=== PATIENT | male | born 1945 | race Caucasian/White ===

== ENCOUNTER 2019-04-01 18:17 | Inpatient (IN) | payer MEDICARE ==
[~2019-04-01] VITALS: Ht 175.3 cm; Wt 66.5 kg
[~2019-04-01 18:17] MED LIST: ASPI81CH; ASPI81CH PO; ATOR20 PO; BISA10S PR; CEPACOL SORE T1 EACH MM; DICL.1SO OD; DOCU100 PO; Doxycycline Hy100 MG PO; FENT25TP TOP; FERR325 PO; FOLI1 PO; GABA600 PO; IBUP600 PO; LISI20 PO; LORA.5 PO; MESA250ER PO; METCAR750 PO; METO25 PO; METO50ER PO; Milk Of Ma400 MG/5 M PO; Multi-Day Vita1 EACH PO; NITR.4SL SL; NITR.6SL SL; OFLO.3OPSO; OMEP20ER PO; ONDA8 PO; OXYC10ER PO; OXYC1TAB11 PO; Omeprazole20 M1 PO; POLYOX WSR-3011 GM PO; PRED1SU OD; THIA100 PO; TRAM50 PO; TRAZ50 PO; Vitamin C100 M1 PO; Zofran Odt4 MG SL
[2019-04-01 18:34] LABS: BASOPHILS ABSOLUTE AUTO 0.03 K/mm3 (0.00-0.23); BASOPHILS PERCENT AUTO 0 % (0-2); EOSINOPHILS ABSOLUTE AUTO 0.07 K/mm3 (0.00-0.68); EOSINOPHILS PERCENT AUTO 1 % (0-6); Hematocrit 31.4 % (37.0-53.0); Hemoglobin 10.2 g/dL (13.5-17.5); IMMATURE GRAN ABSOLUTE AUTO 0.03 K/mm3 (0.00-0.10); IMMATURE GRAN PERCENT AUTO 0 % (0-1); LYMPHOCYTES ABSOLUTE AUTO 1.34 K/mm3 (0.84-5.20); LYMPHOCYTES PERCENT AUTO 16 % (21-46); MONOCYTES PERCENT AUTO 5 % (4-13); Mean Corpuscular HGB 31.1 pg (26.0-34.0); Mean Corpuscular HGB Conc 32.5 g/dL (31.5-36.5); Mean Corpuscular Volume 96 fL (80-100); Mean Platelet Volume 9.3 fL (9.1-12.4); NEUTROPHILS ABSOLUTE AUTO 6.38 K/mm3 (1.96-9.15); NEUTROPHILS PERCENT AUTO 77 % (41-73); Platelet Count 259 K/mm3 (150-400); RDW Coefficient Variation 13.8 % (11.7-14.2); RDW Standard Deviation 48.4 fL (35.1-46.3); Red Blood Cell Count 3.28 M/mm3 (4.30-5.90); White Blood Cell Count 8.25 K/mm3 (4.00-11.30)
[2019-04-01 19:05] LABS: Alanine Aminotransfer (ALT/SGP 14 U/L (12-78); Albumin/Globulin Ratio 0.7 (0.8-1.8); Alk Phos 66 U/L (50-136); Anion Gap 8 mmol/L (6-16); Aspartate Aminotrans (AST/SGOT 14 U/L (12-37); Bilirubin, Total 0.6 mg/dL (0.1-1.0); Blood Urea Nitrogen 13 mg/dL (8-24); Bun/Creatinine Ratio 16.1 (12.0-20.0); CO2, Blood 22 mmol/L (21-32); Chloride, Blood 103 mmol/L (98-108); Creatinine, Blood 0.81 mg/dL (0.60-1.20); Globulin, Blood 4.4 g/dL (2.2-4.0); Glomerular Filtration Rate >60 (60-); Glucose, Blood 129 mg/dL (70-99); Potassium, Blood 3.8 mmol/L (3.5-5.5); Sodium, Blood 133 mmol/L (136-145); Total Protein, Blood 7.4 g/dL (6.4-8.2); Troponin I 0.042 ng/mL (0.000-0.040)
[2019-04-01] MEDS ORDERED: LISI20 PO (20:12)
[2019-04-01] MEDS ORDERED: GABA300 PO (20:12)
[2019-04-01 20:43] LABS: Magnesium, Blood 2.2 mg/dL (1.6-2.4)
[2019-04-01 20:44] LABS: Thyroid Stimulating Hormone 0.793 uIU/mL (0.360-4.800)
[2019-04-01 21:01] LABS: CHOL/HDL RATIO 3.3; Cholesterol 116 mg/dL (50-200); HDL Cholesterol 35 mg/dL (>39); LDL/HDL RATIO 1.9; Low Density Lipoprotein Chol 66 mg/dL (0-110); Triglycerides 77 mg/dL (30-160); Very Low Density Lipoprot Chol 15 mg/dL (6-32)
[2019-04-01] MEDS ORDERED: CIPR500 PO (23:27)
[2019-04-02 00:17] LABS: U Amphetamine Screen Not Detected; U Barbituate Screen Not Detected; U Benzodiazapine Screen Not Detected; U Buprenorphine Screen Not Detected; U Cannabinoids Screen Not Detected; U Cocaine Screen Not Detected; U Methadone Screen Not Detected; U Methamphetamine Screen Not Detected; U Opiates Screen Not Detected; U Oxycodone Screen Not Detected; U Phencyclidine Screen Not Detected; U Propoxyphene Screen Not Detected
[2019-04-02] MEDS ORDERED: CILO100 PO (02:06)
[2019-04-02] MEDS ORDERED: NEO-SYNEPHRINE15 ML (02:07)
--- NOTE | 2019-04-02 02:28 | NUR ---
ASSUMED CARE OF PATIENT AT APPROXIMATELY 2255 FROM ED LISA CARRASQUILLO. PATIENT ARRIVED TO UNIT VIA STRETCHER; TRANSFER WITH 2 ASSIST FROM ED TO PCU STRETCHER. PATIENT USES WALKER AT BASELINE; REPORTS DIZZINESS WHEN BED MOVEMENT AND WHEN STANDING. PATIENT DENIES CP/PRESSURE. PATIENT DENIES PAIN AND NAUSEA; REPORTS CHRONIC NUMBNESS AND TINGING TO FEET; BANDAGE IN BETWEEN TOES PATIENT REPORTS TOENAIL RUBS ON OTHER TOE. PATIENT CONFUSED; UNABLE TO STATE DATE; FORGETS TO CALL WHEN HE NEEDS TO AMBULATE; REPEATEDLY EDUCATED ON FALL RISK PREVENTION RELATED TO UNSTEADY ON FEET AND DIZZINESS. PATIENT AMBULATES TO BATHROOM WITH ONE ASSIST AND FWW. AMDISSION COMPLETE; PATIENT REPORTS HOMELESS AND LIVES AT [place]. POOR HISTORIAN; REPORTS HE HAD A STOKE "THREE YEARS AGO... AND THEY PUT STENTS IN MY HEART". REFUSING SCD'S REPORTS HE IS NOT ABLE TO SLEEP WITH THEM ON HIS LEGS. CARDIO CONSULT CALLED IN; PIV S/L. ORTHOSTATIC VS COMPLETED. PATIENT CURRENTLY SLEEPING IN BED; CALL LIGHT IN REACH; BED ALARM ON; BED IN LOWEST POSISTION; WILL CONTINUE TO MONITOR AND ASSESS UNTIL END OF SHIFT.
--- NOTE | 2019-04-02 06:38 | NUR ---
NO ACUTE CHANGES TO REPORT. PATIENT SLEPT ABOUT FIVE HOURS LAST NIGHT. VSS. WILL CONTINUE TO MONITOR AND ASSESS UNTIL END OF SHIFT.
--- NOTE | 2019-04-02 10:09 | NUR ---
PT UP IN ROOM WITH PT, HE IS STEADING WHEN USING HIS FWW, HOWEVER, HE DOES ABANDON IT AND FORGET TO USE AND USES FURNITURE INSTEAD. REDIRECTED TO USE FWW FOR SAFETY, PT EXPRESSED UNDERSTANDING. UP IN ROOM FOR ADL'S PT ABLE TO DO OWN ADL'S WITH STAFF IN ROOM FOR SBA AND SAFETY. NOTED A COUGH, PT SAID IT IS NOT BASELINE, WILL INFORM DOCTOR ON ROUNDS.
--- NOTE | 2019-04-02 16:32 | NUR ---
CALLED AND LEFT MESSAGE FOR DR. GREEN REGARDING THE [place] ORDER. IMAGING IS DELAYED UNTIL MONDAY BECAUSE OF EQUIPMENT MAINTENANCE TOMORROW (WED THE ). ECHO COMPLETED TODAY WELL VASCULAR STUDIES ORDERED. EKG DONE AND IN FRONT OF CHART. DR HURTADO STATED PT CAN RETURN DIET ORDER, DO NOT ALLOW CAFFINE/CHOCOLATE AT THIS TIME FOR POSSIBLE STRESS TEST. LEADERSHIP PROGRAM INTERN IN TO SEE PATIENT AND PROVIDE RESOURCES FOR COMMUNITY ASSISTANCE AND HELP AVALIABLE. WILL CONTINUE TO BE AVALIABLE AND FOLLOW ORDERS FOR THIS PATIENT.
--- NOTE | 2019-04-02 21:43 | NUR ---
ASSUMED CARE OF PATIENT AT APPROXIMATELY 1900 FROM FREDY Davila RN. PATIENT ALERT AND ORIENTED TO SELF, AND EVENT; CONFUSED AND FORGETFUL AT TIMES. PATIENT USES WALKER AT BASELINE; REPORTS DIZZINESS AT TIMES. PATIENT DENIES CP/PRESSURE. PATIENT DENIES PAIN AND NAUSEA; REPORTS CHRONIC NUMBNESS AND TINGING TO FEET; FORGETS TO CALL WHEN HE NEEDS TO AMBULATE; REPEATEDLY EDUCATED ON FALL RISK PREVENTION RELATED TO UNSTEADY ON FEET AND DIZZINESS. PATIENT AMBULATES TO BATHROOM WITH ONE ASSIST AND FWW; CONTINUES TO REFUSE SCDS. PIV S/L. PATIENT CURRENTLY RESTING IN BED; CALL LIGHT IN REACH; BED ALARM ON; BED IN LOWEST POSISTION; WILL CONTINUE TO MONITOR AND ASSESS UNTIL END OF SHIFT.
[2019-04-03 04:13] LABS: BASOPHILS ABSOLUTE AUTO 0.01 K/mm3 (0.00-0.23); BASOPHILS PERCENT AUTO 0 % (0-2); EOSINOPHILS PERCENT AUTO 0 % (0-6); Hematocrit 32.4 % (37.0-53.0); Hemoglobin 10.6 g/dL (13.5-17.5); Mean Corpuscular HGB 31.2 pg (26.0-34.0); Mean Corpuscular HGB Conc 32.7 g/dL (31.5-36.5); Mean Corpuscular Volume 95 fL (80-100); Mean Platelet Volume 9.5 fL (9.1-12.4); Platelet Count 268 K/mm3 (150-400); RDW Coefficient Variation 13.6 % (11.7-14.2); RDW Standard Deviation 48.5 fL (35.1-46.3); White Blood Cell Count 6.16 K/mm3 (4.00-11.30)
[2019-04-03 04:14] LABS: IMMATURE GRAN ABSOLUTE AUTO 0.04 K/mm3 (0.00-0.10); IMMATURE GRAN PERCENT AUTO 1 % (0-1); LYMPHOCYTES ABSOLUTE AUTO 0.69 K/mm3 (0.84-5.20); LYMPHOCYTES PERCENT AUTO 11 % (21-46); MONOCYTES ABSOLUTE AUTO 0.07 K/mm3 (0.16-1.47); MONOCYTES PERCENT AUTO 1 % (4-13); NEUTROPHILS ABSOLUTE AUTO 5.35 K/mm3 (1.96-9.15); NEUTROPHILS PERCENT AUTO 87 % (41-73)
[2019-04-03 04:37] LABS: Anion Gap 5 mmol/L (6-16); Blood Urea Nitrogen 13 mg/dL (8-24); Bun/Creatinine Ratio 17.2 (12.0-20.0); CO2, Blood 24 mmol/L (21-32); Calcium, Blood 9.3 mg/dL (8.5-10.1); Chloride, Blood 108 mmol/L (98-108); Creatinine, Blood 0.76 mg/dL (0.60-1.20); Glomerular Filtration Rate >60 (60-); Glucose, Blood 141 mg/dL (70-99); Sodium, Blood 137 mmol/L (136-145)
--- NOTE | 2019-04-03 06:03 | NUR ---
NO ACUTE CHANGES TO REPORT. PATIENT NPO SINCE 299. VSS. PATIENT SLEPT ABOUT NINE HOURS. PATIENT COMPLAINS OF COUGH; DR. NIELSEN CALLED; ORDERS RECIEVED FOR PRN COUGH MEDICATION. WILL CONTINUE TO MONITOR AND ASSESS UNTIL END OF SHIFT.
--- NOTE | 2019-04-03 10:44 | NUR ---
BEGINNING OF SHIFT Assumed care at 0700. Bedside report received from Abby GONZALEZ. Pt on room air. NPO for angiogram. Per laboratory specialist scheduling, pt to have procedure this afternoon. Pt verbalizes frustration about not being able to eat. Education provided about NPO and sedation. Dr Calabrese in to see patient. Provider reinforces NPO. Pt taken to laboratory specialist about one hour ago.
--- NOTE | 2019-04-03 11:26 | NUR ---
UPDATE Pt back from medical laboratory technical officer. Plans for transfer to [facility]. Left femoral artery access site. Puncture sites to right groin and right wrist. Right groin and right wrist open to air. Left femoral artery access site covered with bita patch and tegaderm CHG. Site free of leakage, bruising, or hematoma. Color, sensation, capillary refill and distal pulses equal BUE. Pt educated on activity restrictions with left groin site. Pt verbalizes understanding but has been noncompliant. Pt reminded of risks of flexing at hip. Pt states he will remain flat. Will continue to closely monitor patient. Bed in reverse trendelenberg.
--- NOTE | 2019-04-03 17:19 | NUR ---
SHIFT SUMMARY Pt has sat on edge of bed and is currently in bed with HOB elevated at 30 degrees. Left femoral access site remains free of leakage, hematoma, or bruising. Color, sensation, capillary refill and distal pulses equal BLE. Punctures to right wrist and right groin have a lore-sized bruise but ar otherwise unremarkable. Pt is forgetful and requires frequent reminders and reeducation. Plans for patient to transfer to [facility] [facility]. Accepting doctor is Dr Tucker. Facility called and stated there is potential for them to accept the patient tomorrow 04/04/19. Pt updated on plan of care. Radiology and catheterization laboratory technician CDs are on front of chart. Will continue to closely monitor until care handoff and bedside report with oncoming RN.
--- NOTE | 2019-04-03 18:51 | NUR ---
TELEMETRY EVENT Pt had a 9-beat run of wide QRS complex tachycardia. Pt asymptomatic for event. BP after event 108/75, HR 80.
--- NOTE | 2019-04-04 04:51 | NUR ---
END OF SHIFT SUMMARY ASSUMED CARE OF PT @1900. PT LYING IN BED. PRESENTS WITH L GROIN ACCESS SITE. SITE NONTENDER TO PALPATIOPN, DOES NOT PRESENT WITH HARDNESS, HEAT, OR OTHER SIGNS OF BLEEDING. POSTERIOR HIP ASSESSED, NO BRUISING NOTED. PT HAS BEEN UP ONCE THIS SHIFT TO GO TO BATHROOM, SITE CONTINUES TO SHOW NO SIGNS OF NEW DRAINAGE. PT HAS APPEARED TO BE SLEEPING FOR MAJORITY OF SHIFT POST INITIAL ASSESMENT AND EVENING MEDICATIONS. PT DID HAS 29 BEAT RUN OF VTACH, PT WAS NOT SYMPTOMATIC, SEE NOTE. 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 PT TO TRANSFER TO [facility] FOR CV SURGERY R/T SEVERE AORTIC STENOSIS. VSS T/O SHIFT. WILL CONTINUE TO MONITOR PT UNTIL SHIFT CHANGE.
--- NOTE | 2019-04-04 20:18 | NUR ---
BEGINNING OF SHIFT - TRANSFER OF CARE Assumed care of pt at 0700. Bedside report received from Carl GONZALEZ. Shift assessment completed. Pt dressed in own clothing. Eager about transfer to [facility]. Pt educated about facility to facility transfer process. Pt ambulating independently in halls. No events noted on telemetry during ambulation. Pt denies shortness of breath, chest pain, palpitations. Pt on room air. No events per telemetry this shift. Room assignment at [facility] received, room 4430. Report called to Kelsey GONZALEZ. Pt departed from PCU at 1225, via [facility], accompanied by [facility]. Pt departed with peripheral IV access, saline locked. Pt's home medications that were sent to pharmacy upon admission were returned to patient. Belongings transferred with patient. Patient stated he would notify friends/family of transfer.
== END 2019-04-04 12:28 | disposition short-term general hospital (02) | DRG 190 ==
LOC: ER 18:17 → PCU 18:18 → ERHOLD 18:18 → PCU 18:19 → ER 19:54 → PCU 19:54 → ERHOLD 19:54 → PCU 19:54 → ERHOLD 22:59 → PCU 22:59
PROVIDERS: Emergency Medicine; Internal Medicine; ADMIT Family Medicine
PROC: B2161ZZ Fluoroscopy of Right and Left Heart using Low Osmolar Contrast (ICD-10-PCS; principal; 2019-04-03)
DX: J44.1 Chronic obstructive pulmonary disease with (acute) exacerbation (principal); J18.9 Pneumonia, unspecified organism; E87.1 Hypo-osmolality and hyponatremia; I42.9 Cardiomyopathy, unspecified; J44.0 Chronic obstructive pulmonary disease with (acute) lower respiratory infection; I35.0 Nonrheumatic aortic (valve) stenosis; Z79.82 Long term (current) use of aspirin; F17.210 Nicotine dependence, cigarettes, uncomplicated; Z59.0 Homelessness; R04.0 Epistaxis; I48.0 Paroxysmal atrial fibrillation; I25.10 Atherosclerotic heart disease of native coronary artery without angina pectoris; Z95.5 Presence of coronary angioplasty implant and graft; I73.9 Peripheral vascular disease, unspecified; Z86.711 Personal history of pulmonary embolism
CPT/HCPCS: 36415; 71046; 71260; 80048; 80053; 80061; 83735; 83880; 84443; 84484; 85025; 93005; 93010; 93306; 93458; 93925; 93970; 96361; 96374-59; 97162; 97166; 97530; 97535; 99152; 99285-25; C1769; C1894; G0378; J0696; J1644; J1650; J2250; J3010; J7030; J7040; J7512; Q9967